=== PATIENT | male | born 1990 | race Two or more races ===

== ENCOUNTER 2020-07-04 14:33 | Emergency (ER) | payer SELFPAY ==
[~2020-07-04] VITALS: Ht 167.6 cm; Wt 65.8 kg
[2020-07-04 14:42] VITALS: BP 154/70
[2020-07-04] MEDS ORDERED: ONDANSETRON ODT 4 MG TAB PO ONE (15:00)
[2020-07-04] MEDS ORDERED: LORazepam 2MG/ML-1ML VIAL IV ONE (15:15)
[2020-07-04] MEDS ORDERED: SODIUM CHLORIDE 0.9% 1,000 ML IV ONE (15:15)
[2020-07-04 16:07] LABS: Urine Bacteria NONE SEEN /hpf (None Seen); Urine Blood Negative /uL (Negative); Urine Specific Gravity 1.002 (1.001-1.035); Urine WBC <1 /hpf (0 - 3)
== END 2020-07-04 16:37 | disposition home or self-care (01) ==
LOC: ER 14:34
DX: F15.10 Other stimulant abuse, uncomplicated (principal); R11.0 Nausea
CPT/HCPCS: 81001; 93005; 96361; 96374; 99284; J2060; J7030; Q0162